=== PATIENT | female | born 1990 | race Hispanic/Latino ===

== ENCOUNTER 2021-06-15 02:08 | Emergency (ER) | payer BC ==
[2021-06-15 02:57] LABS: Bilirubin Neg (Negative); Blood, Urine Negative (Negative); Clarity Clear (Clear); Glucose, Urine (Dipstick) Normal (Negative); Ketone, Urine Negative (Negative); Leukocyte Negative (Negative); Nitrite Negative (Negative); Protein, Urine (Dipstick) Negative (Neg-Trace); Urobilinogen Normal mg/dL (Less than 2)
[2021-06-15] MEDS ORDERED: Acetaminophen 500 MG TAB ONE (02:58)
[2021-06-15 03:04] LABS: #Eosinphils 0.2 10x3/uL (0.0-0.5); #Monocytes 0.9 10x3/uL (0.0-1.1); %Basophils 0.3 % (0.0-2.0); %Eosinophils 1.7 % (0.0-6.0); %Lymphocytes 19.5 % (18.0-47.0); %Monocytes 8.8 % (0.0-10.0); %Neutrophils 68.5 % (40.0-75.0); Mean Corpuscular HGB CONC 34.6 g/dL (32.0-36.0); Mean Corpuscular Hemoglobin 30.2 pg (27.0-33.0); Mean Corpuscular Volume 87.4 fl (81.6-98.3); Mean Platelet Volume 8.4 fl (7.4-10.4); Platelet Count 356 10x3/uL (150-450); RBC Distribution Width 13.7 % (11.5-14.5); Red Blood Cell (RBC) Count 3.97 10x6/uL (3.90-5.03); White Blood Cell (WBC) Count 10.3 10x3/uL (3.5-10.5)
[2021-06-15 03:24] LABS: ALT (SGPT) 18 U/L (8-55); AST (SGOT) 14 U/L (5-34); Albumin 3.5 g/dL (3.5-5.0); Alkaline Phosphatase 60 U/L (40-110); Anion Gap 12 mmol/L (10-20); BUN (Urea Nitrogen) 5 mg/dL (7.0-18.7); Bilirubin, Total 0.1 mg/dL (0.2-1.2); Calc. Creatinine Clearance 0 mL/min (70-130); Calcium 9.2 mg/dL (7.8-10.44); Carbon Dioxide 21 mmol/L (22-29); Chloride 108 mmol/L (98-107); Globulin 2.9 g/dL (2.4-3.5); Glucose 94 mg/dL (70-105); Protein, Total 6.4 g/dL (6.0-8.3); Sodium 137 mmol/L (136-145)
== END 2021-06-15 04:09 | disposition home or self-care (01) ==
LOC: CSHERS 02:08
DX: O47.02 False labor before 37 completed weeks of gestation, second trimester (principal); Z3A.18 18 weeks gestation of pregnancy
CPT/HCPCS: 36415; 80053; 81003; 85025

== ENCOUNTER 2021-06-15 10:33 | Emergency (ER) | payer BC | END 2021-06-15 14:35 | disposition home or self-care (01) | LOC: CSHERS 10:33 | DX: O99.891 Other specified diseases and conditions complicating pregnancy (principal); R10.30 Lower abdominal pain, unspecified; Z3A.18 18 weeks gestation of pregnancy | CPT/HCPCS: 36415; 76856; 80053; 81003; 85025; 99284 ==

== ENCOUNTER 2021-10-16 12:13 | Day surgery (SDC) | payer BC ==
[2021-10-16] MEDS ORDERED: hydrALAZINE 20 MG/ML VIAL SLOW IVP PRN (13:18)
== END 2021-10-16 15:00 | disposition home or self-care (01) ==
LOC: CSHLD/OP 12:13
PROVIDERS: ATTEND Obstetrics & Gynecology
DX: O47.03 False labor before 37 completed weeks of gestation, third trimester (principal); Z3A.35 35 weeks gestation of pregnancy
CPT/HCPCS: 99283

== ENCOUNTER 2021-10-17 19:54 | Day surgery (SDC) | payer BC ==
[2021-10-17 20:13] VITALS: BMI 37.2
[2021-10-17 20:35] LABS: Fetal Membranes Rupture No Membranes Rupture (No Rupture)
[2021-10-17] MEDS ORDERED: hydrALAZINE 20 MG/ML VIAL SLOW IVP PRN (21:35)
== END 2021-10-17 21:45 | disposition home or self-care (01) ==
LOC: CSHLD/OP 19:54
PROVIDERS: ATTEND Obstetrics & Gynecology
DX: O99.891 Other specified diseases and conditions complicating pregnancy (principal); N89.8 Other specified noninflammatory disorders of vagina; R10.9 Unspecified abdominal pain; Z3A.36 36 weeks gestation of pregnancy
CPT/HCPCS: 84112; 99283

== ENCOUNTER 2021-10-30 23:37 | Inpatient (IN) | payer BC ==
[2021-10-31] VITALS: BMI 37.8
[2021-10-31 00:25] LABS: Fetal Membranes Rupture RUPTURE DETECTED (No Rupture)
[2021-10-31] MEDS ORDERED: hydrALAZINE 20 MG/ML VIAL SLOW IVP PRN ×2 (00:30→06:57)
[2021-10-31] MEDS ORDERED: Ondansetron PF 4 MG/2 ML Vial IVP PRN ×2 (00:30→02:18)
[2021-10-31] MEDS ORDERED: Lidocaine 1% (PF) 30 ML VIAL SC PRN (00:30)
[2021-10-31] MEDS ORDERED: Promethazine HCl 25 MG/ML VIAL IM PRN ×2 (00:30→02:18)
[2021-10-31] MEDS ORDERED: Ibuprofen 800 MG TAB PO PRN (00:35)
[2021-10-31] MEDS ORDERED: Carboprost 250 MCG/ML AMP IM PRN (00:35)
[2021-10-31] MEDS ORDERED: Acetaminophen 500 MG TAB PO PRN (00:35)
[2021-10-31] MEDS ORDERED: Methylergonovine 0.2 MG/ML VIAL IM PRN (00:35)
[2021-10-31] MEDS ORDERED: Misoprostol 200 MCG TAB PR PRN (00:35)
[2021-10-31] MEDS ORDERED: Penicillin G Potassium 5 MILL.UNITS VIAL ONE (00:45)
[2021-10-31] MEDS ORDERED: Penicillin G Potassium 5 MILL.UNITS in Sodium Chloride 0.9% 100 ML IVPB SCH (00:45)
[2021-10-31] MEDS: Lactated Ringer's 1,000 ML IV SCH ×2 (00:46→03:56)
[2021-10-31] MEDS ORDERED: Fentanyl 2 mcg/Bup 0.1% Cadd 100 ML ONE (01:22)
[2021-10-31 01:23] LABS: Hemoglobin 12.4 g/dL (12.0-15.5); Mean Corpuscular HGB CONC 34.2 g/dL (32.0-36.0); Mean Corpuscular Hemoglobin 31.6 pg (27.0-33.0); Mean Corpuscular Volume 92.4 fl (81.6-98.3); Mean Platelet Volume 8.4 fl (7.4-10.4); Platelet Count 431 10x3/uL (150-450); Red Blood Cell (RBC) Count 3.93 10x6/uL (3.90-5.03); White Blood Cell (WBC) Count 8.9 10x3/uL (3.5-10.5)
[2021-10-31 01:38] LABS: SARS-CoV-2 NAA Rapid Test Not Detected (NotDetected)
[2021-10-31 01:53] LABS: Syphilis Antibody Nonreactive (Nonreactive); Syphilis Antibody Index 0.04 S/CO (<1.00 Non-Reactive)
[2021-10-31 01:54] LABS: Hep B Surf Ag Non-Reactive S/CO (NonReactive)
[2021-10-31 01:59] LABS: HBSAg Index 0.15 S/CO (0-0.99)
[2021-10-31] MEDS ORDERED: Hydrocerin (Eucerin) Cream 120 gm Jar TOP PRN (02:18)
[2021-10-31] MEDS ORDERED: Acetaminophen 325 MG TAB PO PRN (02:18)
[2021-10-31] MEDS ORDERED: ePHEDrine Sulfate 50 MG/10 ML VIAL SLOW IVP PRN (02:18)
[2021-10-31] MEDS ORDERED: diphenhydrAMINE 50 MG/ML VIAL IVP PRN (02:18)
[2021-10-31] MEDS ORDERED: Lactated Ringer's 500 ML IV PRN (02:18)
[2021-10-31] MEDS ORDERED: Naloxone HCl 0.4 mg/ml Vial IVP PRN ×2 (02:18)
[2021-10-31] MEDS ORDERED: Fentanyl 2 mcg/Bupivacaine 0.1% Cassette 100 ML EPIDURAL SCH (02:30)
[2021-10-31] MEDS ORDERED: Communication Order-Pharmacy FS SCH (02:30)
[2021-10-31] MEDS ORDERED: Penicillin G 2.5 MILL.units 2.5 MILL.UNITS in Premix Bag 1 BAG IVPB SCH (04:45)
[2021-10-31] MEDS: NS w/ Oxytocin 30 units 500 ML IV SCH ×2 (05:10→06:07)
[2021-10-31] MEDS ORDERED: Bisacodyl 10 MG SUPP PR PRN (06:57)
[2021-10-31] MEDS ORDERED: Milk Of Magnesia 30 ML UDCUP PO PRN (06:57)
[2021-10-31] MEDS ORDERED: Lanolin Ointment 7 GM TUBE TOP PRN (06:57)
[2021-10-31] MEDS ORDERED: Boostrix 0.5 ML (Tdap) VIAL IM ONE (06:57)
[2021-10-31] MEDS ORDERED: Ibuprofen 800 MG TAB PO SCH (07:15)
[2021-10-31] MEDS: Ferrous Sulfate 325 MG TAB PO SCH ×2 (10:30→16:02)
[2021-10-31] MEDS: Docusate Calcium (SURFAK) 240 MG CAP PO SCH ×2 (10:30→21:28)
[2021-10-31] MEDS: Prenatal Vitamin 1 TAB PO SCH (10:31)
[2021-10-31] MEDS: Ibuprofen 800 MG TAB PO SCH ×2 (14:27→21:29)
[2021-11-01] MEDS: Ibuprofen 800 MG TAB PO SCH ×2 (05:26→14:24)
[2021-11-01 07:37] VITALS: BP 108/55; TEMP 97.7
[2021-11-01] MEDS: Ferrous Sulfate 325 MG TAB PO SCH (08:08)
[2021-11-01] MEDS: Docusate Calcium (SURFAK) 240 MG CAP PO SCH (08:59)
[2021-11-01] MEDS: Prenatal Vitamin 1 TAB PO SCH (08:59)
== END 2021-11-01 17:15 | disposition home or self-care (01) | DRG 807 ==
LOC: CSHLD/OP 23:37 → CSHLD 10-31 00:45 → CSHPP 10-31 10:01
PROVIDERS: ADMIT Obstetrics & Gynecology; ATTEND Obstetrics & Gynecology
PROC: 10E0XZZ Delivery of Products of Conception, External Approach (ICD-10-PCS; principal; 2021-10-31)
DX: O99.824 Streptococcus B carrier state complicating childbirth (principal); Z37.0 Single live birth; Z3A.38 38 weeks gestation of pregnancy; Z20.822 Contact with and (suspected) exposure to COVID-19
CPT/HCPCS: 36415; 51702; 84112; 85027; 86780; 86850; 86900; 86901; 87340; 99285; J2540; J2590; J7120; U0002